=== PATIENT | male | born 1970 | race Caucasian/White ===

== ENCOUNTER 2018-08-17 13:00 | Emergency (ER) | payer MEDICAID ==
[~2018-08-17] VITALS: Ht 193 cm; Wt 72.7 kg
[~2018-08-17 13:00] MED LIST: LISI1TAB5 PO; LISI30TA4 PO; MELO15TA6 PO; OXYC20TA2 PO; TESTOSTERONE
[2018-08-17 13:02] VITALS: BP 136/78
--- NOTE | 2018-08-17 13:50 | NUR ---
PT IN XRAY. RN DISCUSSED DC ORDERS WITH RAJAT SHAW, DC ORDERS WERE ENTERED IN ERROR.
[2018-08-17 13:55] LABS: BASOPHILS # (AUTO) 0.05 x10^3/uL (0-0.1); BASOPHILS % (AUTO) 0 % (0-1); EOSINOPHILS # (AUTO) 0.01 x10^3/uL (0-0.4); EOSINOPHILS % (AUTO) 0 % (1-7); LYMPHOCYTES # (AUTO) 0.97 x10^3/uL (1-3.4); LYMPHOCYTES % (AUTO) 8 % (22-44); MD NO; MEAN CORPUSCULAR HEMOGLOBIN 28.9 pg (27.5-34.5); MEAN CORPUSCULAR HGB CONC 33.2 g/dL (33.2-36.2); MEAN CORPUSCULAR VOLUME 87.1 fL (81-97); MEAN PLATELET VOLUME 6.7 fL (7.4-10.4); MONOCYTES # (AUTO) 0.45 x10^3/uL (0.2-0.8); MONOCYTES % (AUTO) 4 % (2-9); NEUTROPHILS # (AUTO) 11.53 x10^3/uL (1.8-6.8); NEUTROPHILS % (AUTO) 89 % (42-75); PLATELET COUNT 333 x10^3/uL (130-400); RED BLOOD COUNT 4.72 x10^6/uL (4.38-5.82); RED CELL DISTRIBUTION WIDTH 14.8 % (9.4-14.8)
[2018-08-17 14:03] LABS: ALBUMIN 3.8 g/dL (3.4-5.0); ANION GAP 8 mmol/L (5-15); CALCIUM 9.3 mg/dL (8.5-10.1); CHLORIDE 111 mmol/L (98-107)
[2018-08-17] MEDS ORDERED: KETOROLAC 30 MG/1 ML IM ONE (14:30)
[2018-08-17] MEDS ORDERED: KETOROLAC 30 MG/1 ML ONE (14:35)
--- NOTE | 2018-08-17 14:58 | NUR ---
PT GIVEN DC INSTRUCTIONS. PT GIVEN SNACK. PT A&O, RESPS EVEN AND UNLABORED, NADN. PT AMB TO DC DESK WITH STEADY GAIT. AT TIME OF DC, PT STATES "WHERE'S MY BACKBACK"? NO BACKPACK SEEN IN ROOM, RN DID NOT SEE ANY BACKPACK WITH PT ON ARRIVAL. PT [facility], PT CANNOT RECALL IF HE BROUGHT BACKPACK OUT OF AMBULANCE ON ARRIVAL. PT STATES HE WILL CONTACT [facility] TO OBTAIN BACKPACK.
== END 2018-08-17 14:59 | disposition home or self-care (01) ==
LOC: ED 14:53
DX: M25.551 Pain in right hip (principal); G89.29 Other chronic pain; I10 Essential (primary) hypertension
CPT/HCPCS: 36415; 73502; 80048; 82040; 84550; 85025; 96372; 99284; J1885